=== PATIENT | female | born 1980 | race Caucasian/White ===

== ENCOUNTER → 2016-09-13 | Outpatient (CLI) | payer MEDICAID, OTHER ==
[2016-09-13 15:04] LABS: MEAN CORPUSCULAR HEMOGLOBIN 33.2 pg (27.0-33.0); MEAN CORPUSCULAR HGB CONC 35.6 g/dl (32.0-36.5); MEAN CORPUSCULAR VOLUME 93.3 fl (80.0-96.0); RED CELL DISTRIBUTION WIDTH 12.9 % (11.5-14.5); WHITE BLOOD COUNT 12.6 K/mm3 (4.0-10.0)
--- NOTE | 2016-09-13 15:14 | REP ---
First trimester obstetric ultrasound for dating, stat request: The study is performed with transabdominal and endovaginal imaging. There is a twin diamniotic dichorionic gestation. The heart rate of twin A is 160 beats per minute. The heart rate of twin B is 136 beats per minute. The crown-rump length of twin A is 1.6 cm corresponding to 8 weeks 0 days gestational age. The crown-rump length of twin B is 1.1 c corresponding to 7 weeks 2 days gestational age. The LISA is 04/30/2017. There is no subchorionic hematoma. The maternal adnexa and cul-de-sac are unremarkable. Signed by Shimon Gale MD 09/13/2016 03:05 P
[2016-09-13 15:46] LABS: ALBUMIN 3.3 GM/DL (3.2-5.2); ALBUMIN/GLOBULIN RATIO 0.85 (1.00-1.93); ALKALINE PHOSPHATASE 104 U/L (45-117); ALT/SGPT 38 U/L (12-78); ANION GAP 9 MEQ/L (8-16); AST/SGOT 13 U/L (15-37); BILIRUBIN,TOTAL 0.3 MG/DL (0.2-1.0); BLOOD UREA NITROGEN 6 MG/DL (7-18); CALCIUM LEVEL 9.1 MG/DL (8.5-10.1); CARBON DIOXIDE LEVEL 24 MEQ/L (21-32); CHLORIDE LEVEL 97 MEQ/L (98-107); CREATININE FOR GFR 0.53 MG/DL (0.55-1.02); GLOMERULAR FILTRATION RATE > 60.0 (>60); GLUCOSE, FASTING 78 MG/DL (70-105); POTASSIUM SERUM 3.8 MEQ/L (3.5-5.1); SODIUM LEVEL 130 MEQ/L (136-145); TOTAL PROTEIN 7.2 GM/DL (6.4-8.2)
== END ==
LOC: M RAD 14:05
PROVIDERS: ATTEND Physician Assistant
DX: Z32.01 Encounter for pregnancy test, result positive (principal)

== ENCOUNTER → 2018-11-26 | Outpatient (REF) | LOC: M LAB LCGH 15:18 | PROVIDERS: ATTEND Nurse Practitioner Family | DX: B07.8 Other viral warts (principal) ==